=== PATIENT | male | born 1970 | race Caucasian/White ===

== ENCOUNTER 2021-07-10 07:28 | Emergency (ER) | payer OTHER | END 2021-07-10 08:57 | disposition home or self-care (01) | LOC: JP.ED 07:28 | DX: S43.401A Unspecified sprain of right shoulder joint, initial encounter (principal); E78.00 Pure hypercholesterolemia, unspecified; I10 Essential (primary) hypertension; E11.9 Type 2 diabetes mellitus without complications; E03.9 Hypothyroidism, unspecified; E66.9 Obesity, unspecified; Z68.35 Body mass index [BMI] 35.0-35.9, adult; Z79.899 Other long term (current) drug therapy; Z79.4 Long term (current) use of insulin; Z87.891 Personal history of nicotine dependence; W10.9XXA Fall (on) (from) unspecified stairs and steps, initial encounter | CPT/HCPCS: 73030-26-RT; 73030-RT; 99282; 99283-25 ==

== ENCOUNTER 2025-04-22 00:37 | Emergency (ER) | payer MEDICAID, OTHER | END 2025-04-22 02:32 | disposition home or self-care (01) | LOC: JP.ED 00:37 | DX: S20.212A Contusion of left front wall of thorax, initial encounter (principal); I10 Essential (primary) hypertension; E78.00 Pure hypercholesterolemia, unspecified; E11.9 Type 2 diabetes mellitus without complications; E03.9 Hypothyroidism, unspecified; Z91.013 Allergy to seafood; Z79.4 Long term (current) use of insulin; Z79.899 Other long term (current) drug therapy; Z79.890 Hormone replacement therapy; W22.8XXA Striking against or struck by other objects, initial encounter; Y93.89 Activity, other specified | CPT/HCPCS: 71101-26-LT; 71101-LT; 99283; A9270-GY ==